=== PATIENT | female | born 2000 | race Caucasian/White ===

== ENCOUNTER 2022-11-01 23:40 | Observation (INO) ==
[2022-11-01] MEDS ORDERED: Ondansetron 4 mg VIAL 2 MG/ML 2 ml VIAL ONE (23:52)
[2022-11-01] MEDS ORDERED: Ondansetron 4 mg VIAL 2 MG/ML 2 ml VIAL IV ONE (23:54)
[2022-11-01] MEDS ORDERED: Lactated Ringers 1000 ml BAG 1,000 ML IV ONE (23:56)
[2022-11-02 00:05] LABS: ABS Basophils 0.1 10^3/uL (0.0-0.1); ABS Eosinophils 0.3 10^3/uL (0.0-0.5); ABS Lymphocytes 1.9 10^3/uL (1.0-4.8); ABS Monocytes 0.5 10^3/uL (0.0-0.9); ABS Neutrophils 8.1 10^3/uL (1.5-7.6); ABS Nucleated RBC 0.02 10^3/ul; Eosinophil % 2.3 %; Hematocrit 39.4 % (35-45); Hemoglobin 13.7 g/dL (11.5-14.3); Lymphocyte % 17.9 %; Mean Corpuscular Hemoglobin 29.8 pg (27-33); Mean Corpuscular Hgb Conc 34.8 g/dL (31-36); Mean Corpuscular Volume 85.5 fL (80-97); Mean Platelet Volume 8.3 fL (7.5-11.2); Nucleated Red Blood Cells % 0.2 /100 WBC (0.0-0.4); Platelet Count 420 10^3/uL (150-450); Red Blood Count 4.61 10^6/uL (3.63-4.92); Red Cell Distribution Width 13.5 % (12-17); White Blood Count 10.8 10^3/uL (3.8-11.8)
[2022-11-02 00:25] LABS: ALT 28 U/L (7-52); AST 32 U/L (13-39); Albumin 4.2 g/dL (3.2-5.2); Albumin/Globulin Ratio 1.3 (1-3); Alkaline Phosphatase 78 U/L (35-149); Anion Gap 12 mmol/L (2-16); Blood Urea Nitrogen 10 mg/dL (6-24); C Reactive Protein 54.12 mg/L (<8.01); CO2 Carbon Dioxide 22 mmol/L (22-32); Calcium 9.4 mg/dL (8.6-10.3); Chloride 102 mmol/L (101-111); Creatinine, Serum 0.67 mg/dL (0.51-0.95); Globulin 3.3 g/dL (2-4); Glucose 172 mg/dL (70-100); Lipase 12 U/L (11.0-82.0); Potassium 3.6 mmol/L (3.5-5.0); Sodium 136 mmol/L (135-145); Total Protein 7.5 g/dL (6.4-8.9); eGFR CKD-EPI 126.7 (>60)
[2022-11-02 00:32] LABS: HCG Pregnancy < 0.60 mIU/mL
[2022-11-02] MEDS ORDERED: Lorazepam PYXIS KEY PRN (00:43)
[2022-11-02] MEDS ORDERED: LORazepam 2 mg VIAL 1 ml IV PUSH ONE (00:43)
[2022-11-02] MEDS ORDERED: Iohexol 300 (CONTRAST) 10 ML SDV IV ONE (01:08)
[2022-11-02] MEDS ORDERED: Metoclopramide 5 MG/ML VIAL (10 mg) IV SLOW PU ONE (01:57)
[2022-11-02] MEDS ORDERED: Lactated Ringers 1000 ml BAG 1,000 ML IV ONE ×2 (01:57→05:02)
[2022-11-02] MEDS ORDERED: Haloperidol 5 mg/ml SDV IV/IM 5 MG/ML AMP IV SLOW PU ONE (03:03)
[2022-11-02] MEDS ORDERED: Polyethylene Glycol 3350 17 GM PACKET PO PRN (05:51)
[2022-11-02] MEDS ORDERED: Acetaminophen IV 1 GM/100ML 1,000 MG/100 ML BAG IV PRN (06:24)
[2022-11-02] MEDS ORDERED: Prochlorperazine 5 mg/ml 2 ml VIAL (10 mg) IV PRN (06:24)
[2022-11-02] MEDS ORDERED: Ondansetron 4 mg VIAL 2 MG/ML 2 ml VIAL IV PRN (06:24)
[2022-11-02] MEDS: Lactated Ringers 1000 ml BAG 1,000 ML IV SCH ×2 (14:57→22:57)
[2022-11-03 06:24] LABS: ABS Eosinophils 0.1 10^3/uL (0.0-0.5); ABS Lymphocytes 2.3 10^3/uL (1.0-4.8); ABS Monocytes 0.4 10^3/uL (0.0-0.9); ABS Neutrophils 3.6 10^3/uL (1.5-7.6); Eosinophil % 2.2 %; Hematocrit 33.9 % (35-45); Hemoglobin 11.7 g/dL (11.5-14.3); Lymphocyte % 35.3 %; Mean Corpuscular Hemoglobin 29.7 pg (27-33); Mean Corpuscular Hgb Conc 34.5 g/dL (31-36); Mean Corpuscular Volume 86.1 fL (80-97); Mean Platelet Volume 8.5 fL (7.5-11.2); Nucleated Red Blood Cells % 0.1 /100 WBC (0.0-0.4); Platelet Count 275 10^3/uL (150-450); Red Blood Count 3.93 10^6/uL (3.63-4.92); Red Cell Distribution Width 13.5 % (12-17); White Blood Count 6.5 10^3/uL (3.8-11.8)
[2022-11-03] MEDS: Lactated Ringers 1000 ml BAG 1,000 ML IV SCH (06:30)
[2022-11-03 06:43] LABS: C Reactive Protein 17.33 mg/L (<8.01); Calcium 8.2 mg/dL (8.6-10.3); Creatinine, Serum 0.63 mg/dL (0.51-0.95); Magnesium 1.8 mg/dL (1.9-2.7); Potassium 3.9 mmol/L (3.5-5.0); eGFR CKD-EPI 128.6 (>60)
[2022-11-03 09:48] VITALS: BP 110/73
[2022-11-03] MEDS ORDERED: Norgestimate-Eth Estradiol(NF) TAB PO SCH (12:00)
== END 2022-11-03 10:45 | disposition home or self-care (01) ==
LOC: ED 23:40 → EDHOLD 23:40 → SUATTDRO 11-02 05:44 → MED 11-02 14:37
PROVIDERS: ADMIT Internal Medicine; ATTEND Student in an Organized Health Care Education/Training Program